=== PATIENT | female | born 1985 ===

== ENCOUNTER 2019-05-23 07:30 | Inpatient (IN) ==
[2019-05-23] MEDS ORDERED: OXYTOCIN 30 UNITS/500 ML BAG IV PRN ×2 (07:46)
--- NOTE | 2019-05-23 08:09 | History & Physical Report ---
Date of Service May 23, 2019 Assessment & Plan (1) : IOL. Admit to L&D. Start pitocin. EFM/toco. IV fluids. Labs. History of Present Illness Chief Complaint: IOL Primary Care Provider: NO PCP 34yo G @ 41 0/7 presents for IOL for postdates. Complicated by AMA. Feeling well. No vaginal bleeding, no leaking of fluid. + movement. No reg ctx. Frazier bulb was inserted last night, has not yet fallen out. Allergies Allergy/AdvReac Type Severity Reaction Status Date / Time No Known Drug Allergies Allergy Unknown Unknown Verified 05/22/19 19:11 Home Medications Home Medications Medication Instructions Recorded Confirmed Type PNV cmb#95-ferrous fumarate-FA 1 tab PO DAILY 05/22/19 05/22/19 History [] Patient History Medical History H/O varicella Surgical History (Updated 05/22/19 @ 19:11 by Lilliana Olivo RN) S/P wisdom tooth extraction 2001 Social History (Updated 01/21/19 @ 10:01 by Judie Quinn) Preferred Language: British marital status: Current Living Situation: Spouse Feels Safe at Home: Yes Smoking Status: Never smoker Hx Alcohol Use: No Hx Substance Use: No Review of Systems All systems reviewed & are unremarkable except as noted in HPI & below Physical Exam Physical Exam: Frazier removed, was sitting in vagina. Cervix 4-5/80/-2. FHT Cat 1 [place] Q 5-6 Constitutional: WD/WN, vitals as above Respiratory: normal respiratory effort, lungs clear to auscultation no respiratory distress Cardiovascular: Rate/Rhythm: regular rate and regular rhythm Gastrointestinal (Abdomen): Inspection/Auscultation: abdomen normal to inspection Percussion/Palpation: abdomen soft; abdomen nontender Gravid. No s/s chorio or abruption. Skin: no rashes, warm and dry Psychiatric: A+Ox3, euthymic affect Results & Data Vital Signs (Past 12 Hours) Vital Signs Pulse BP 05/23/19 07:35 96 H 118/77
[2019-05-23 08:19] LABS: Hematocrit (blood only) 37.9 % (37-47); Mean Corpuscular Hemoglobin 32.2 pg (25-34); Mean Corpuscular Volume 93.8 fL (80-100); Mean Platelet Volume 10.6 fL (7.4-10.4); Platelet Count 214 K/uL (130-400); RDW Coefficient of Variation 13.3 % (11.5-14.5); RDW Standard Deviation 45.9 fL (36.4-46.3); Red Blood Count 4.04 M/uL (4.2-5.4); White Blood Count 10.15 K/uL (4.8-10.8)
[2019-05-23 08:26] LABS: Mean Corpuscular Hgb Conc 34.3 g/dL (32-36)
[2019-05-23] MEDS: LACTATED RINGER'S 1,000 ML IV PRN ×2 (08:40→19:04)
[2019-05-23] MEDS ORDERED: fentaNYL citrate 100 MCG/2 ML VIAL ONE (11:42)
[2019-05-23] MEDS ORDERED: BUPIVACAINE 0.25% 30 ML VIAL ONE (11:42)
[2019-05-23] MEDS ORDERED: ePHEDrine sulfate 50 MG/ML AMP ONE (11:42)
[2019-05-23] MEDS ORDERED: fentaNYL 2MCG/ML ROPIV 1.25MG/ML 100 ML BAG EPI ONE (11:43)
[2019-05-23] MEDS ORDERED: fentaNYL 2MCG/ML ROPIV 1.25MG/ML 100 ML BAG EPI PRN (11:53)
[2019-05-23] MEDS ORDERED: ePHEDrine sulfate 50 MG/ML AMP IV PRN ×2 (11:53→20:45)
[2019-05-23] MEDS ORDERED: NALOXONE HCL 0.4 MG/1 ML VIAL/CARP IV PRN ×2 (11:53→20:45)
[2019-05-23] MEDS ORDERED: ONDANSETRON INJ 2 MG/ML 2 ML VIAL IV PRN ×2 (11:53→20:45)
[2019-05-23] MEDS ORDERED: NALBUPHINE HCL INJ 10 MG/ML AMP IV PRN ×2 (11:53→20:45)
[2019-05-23] MEDS ORDERED: DiphenhydrAMINE HCL 50 MG/ML VIAL IV PRN ×2 (11:53→20:45)
[2019-05-23] MEDS ORDERED: NALOXONE HCL 1 MG in SODIUM CHLORIDE 0.9% 1000ML 1,000 ML IV PRN ×2 (11:53→20:45)
--- NOTE | 2019-05-23 11:55 | Anesthesiology Consultation ---
Date of Service May 23, 2019 Assessment & Plan (1) Encounter for pre-operative examination: Chart Review Chart Review: Patient NOT seen in Pre Admission Testing and Acceptable Risk for Labor Epidural Consults Requested none ASA ASA2 Proposed Anesthesia Anesthesia Type: Labor Epidural Risk / Benefits Reviewed With: PT / POA / Parent / Guardian, Accepts Plan and Informed Consent Obtained History Height/Weight Height: 5 ft 7 in Weight: 87.543 kg Allergies Allergy/AdvReac Type Severity Reaction Status Date / Time No Known Drug Allergies Allergy Unknown Unknown Verified 05/22/19 19:11 Medications Home Medications Medication Instructions Recorded Confirmed Last Taken PNV cmb#95-ferrous fumarate-FA 1 tab PO DAILY 05/22/19 05/23/19 05/22/19 18:00 [] Active Medications Generic Name Dose Route Start Last Admin Trade Name Freq PRN Reason Stop Dose Admin Lactated Ringer's 1,000 mls @ 125 mls/hr 05/23/19 07:46 05/23/19 11:45 Lr IV 05/25/19 07:45 999 mls/hr .Q8H PRN Titration L&D Protocol Protocol Oxytocin 30 units in 500 mls @ 11 mls/hr 05/23/19 07:46 05/23/19 11:25 Pitocin IV 05/25/19 07:45 0.66 units/hr .Q24H PRN 11 mls/hr Labor Induction/Augmentation Titration Protocol 0.66 UNITS/HR Past Medical History Medical History H/O varicella Exercise / Class Metabolic Activity II 4-5 Yardwork/Stairs/Walk up hill Past Family History Family History Mother Breast cancer Father Hypertension Past Surgical History Surgical History S/P wisdom tooth extraction 2001 Past Anesthesia History No Hx of Anesthesia Complications and No Family Hx of Anesthesia Complications History of PONV No Hx of PONV and No Hx of Motion Sickness Social History Smoking Status: Never smoker Do You Dip or Chew Tobacco: No Hx Alcohol Use: No alcohol intake frequency: 0-2 drinks per day Hx Substance Use: No substance use type: does not use Physical Exam Vital Signs Last Vital Signs Temp 37.3 C 05/23/19 11:23 Pulse 87 05/23/19 12:13 Resp 18 05/23/19 11:23 BP 135/87 05/23/19 12:13 Pulse Ox 98 05/23/19 12:09 Testing Laboratory Results 05/23/19 08:11
[2019-05-23] MEDS ORDERED: LACTATED RINGER'S 1,000 ML IV SCH ×2 (19:30→21:15)
[2019-05-23] MEDS ORDERED: CITRIC ACID/SODIUM CITRATE 15 ML UDC PO SCH (19:35)
[2019-05-23] MEDS ORDERED: CEFAZOLIN 2000MG 2,000 MG/15 ML SYR IV SCH (19:45)
[2019-05-23] MEDS ORDERED: LIDOCAINE/EPINEPHRINE 2% 1:200,000 20 ML SDV ONE (20:23)
[2019-05-23] MEDS ORDERED: ONDANSETRON INJ 2 MG/ML 2 ML VIAL ONE (20:23)
[2019-05-23] MEDS ORDERED: PHENYLEPHRINE HCL 10 MG/ML VIAL ONE (20:23)
[2019-05-23] MEDS ORDERED: OXYTOCIN 10 UNITS/ML VIAL ONE (20:23)
[2019-05-23] MEDS ORDERED: MoRPHine SULFATE PF 1 MG/ML 10 ML AMP/VIAL ONE (20:36)
[2019-05-23] MEDS ORDERED: LACTATED RINGER'S 500 ML IV PRN (20:45)
[2019-05-23] MEDS ORDERED: KETOROLAC 30 MG/ML VIAL IV PRN (20:45)
[2019-05-23] MEDS ORDERED: NALOXONE HCL 0.08 MG in SYRINGE 1.8 ML IV PRN (20:45)
[2019-05-23] MEDS ORDERED: DC INTRASPINAL MORPHINE SCH (20:45)
[2019-05-23] MEDS ORDERED: HYDROmorphone INJ 0.5 MG/0.5 ML SYR IV PRN (20:45)
[2019-05-23] MEDS ORDERED: SODIUM CHLORIDE 0.9% 1000ML 1,000 ML IV SCH (20:45)
[2019-05-23] MEDS ORDERED: NO NARCOTICS OR SEDATIVES SCH (20:45)
[2019-05-23] MEDS ORDERED: MoRPHine SULFATE 2 MG/ML CARP IV PRN (20:45)
[2019-05-23] MEDS ORDERED: MoRPHine SULFATE PF 1 MG/ML 10 ML AMP/VIAL EPI ONE (20:45)
--- NOTE | 2019-05-23 21:06 | Post Operative Brief Note ---
PG Immediate Post Op with CF Date of Surgery May 23, 2019 Pre & Post Diagnosis Operation Date: 05/23/19 19:50 Pre-Op Diagnosis: Arrest of Descent Post-Op Diagnosis: Arrest of Descent I identified the patient and participated in the time-out.: Yes Procedure Operation Date: 05/23/19 19:50 Actual Procedures p Section in LD(Bilateral) - Hollie Rosario MD, FACOG Surgeon Hollie Rosario MD, FACOG Central Office Equipment Installer Marlin Iraheta Estimated Blood Loss 600 Findings Consistent with Post-Op Diagnosis Specimens Specimen Description: Live Female Child at 2020 Placenta (Hold) Cord Blood Cord Gases Drains Frazier Catheter (Inserted prior to procedure and being monitored by anesthesia )
[2019-05-23] MEDS ORDERED: MAGNESIUM HYDROXIDE SUSP 30 ML UDC PO PRN (21:15)
[2019-05-23] MEDS ORDERED: DIPHTHERIA/TETANUS/PERTUSSIS 0.5 ML SYR/VIAL IM ONE (21:15)
[2019-05-23] MEDS ORDERED: HYDROCORTISONE ACETATE 25 MG SUPP PR PRN (21:15)
[2019-05-23] MEDS ORDERED: ACETAMINOPHEN 325 MG TAB PO PRN (21:15)
[2019-05-23] MEDS ORDERED: SUPERCREAM 0.870% 15 GM JAR EXT PRN (21:15)
[2019-05-23] MEDS ORDERED: SENNA 8.6 MG TAB PO PRN (21:15)
[2019-05-23] MEDS ORDERED: IBUPROFEN 600 MG TAB PO PRN (21:15)
[2019-05-23] MEDS ORDERED: BENZOCAINE 20% AER SPR 82.5 GM CAN EXT PRN (21:15)
[2019-05-23 21:19] LABS: CO2 Cord Arterial Blood 38 mmHg (39.1-73.5); HCO3 Cord Arterial Blood 21 mmol/L (19.7-28.5); pH Cord Arterial Blood 7.36 (7.1-7.38)
--- NOTE | 2019-05-23 21:19 | Anesthesiology Progress Note ---
Date of Service May 23, 2019 Anesthesia Post Procedure Vital Signs Vital Signs: Temp Pulse Resp BP Pulse Ox 05/23/19 21:16 112 H 131/81 05/23/19 21:15 77 100 05/23/19 19:53 88 139/86 05/23/19 19:48 69 132/76 05/23/19 19:34 77 97 05/23/19 19:29 77 98 05/23/19 19:24 79 99 05/23/19 19:19 104 H 100 05/23/19 19:18 87 130/81 05/23/19 19:14 84 98 05/23/19 19:11 36.8 C 18 05/23/19 19:09 77 99 05/23/19 19:04 106 H 97 05/23/19 19:03 99 H 94 05/23/19 18:59 105 H 96 05/23/19 18:54 78 99 05/23/19 18:49 80 99 05/23/19 18:46 37.2 C 82 22 131/72 05/23/19 18:44 103 H 98 05/23/19 18:39 90 97 05/23/19 18:34 82 96 05/23/19 18:29 87 96 05/23/19 18:25 83 94 05/23/19 18:24 85 94 05/23/19 18:19 89 99 05/23/19 18:17 78 125/74 05/23/19 18:14 107 H 97 05/23/19 18:13 76 94 05/23/19 18:09 88 96 05/23/19 18:04 110 H 97 05/23/19 18:03 80 93 05/23/19 17:59 98 H 97 05/23/19 17:57 102 H 94 05/23/19 17:54 82 97 05/23/19 17:49 72 96 05/23/19 17:48 75 131/71 05/23/19 17:44 107 H 95 05/23/19 17:39 77 96 05/23/19 17:34 86 99 05/23/19 17:29 91 H 97 05/23/19 17:24 95 H 98 05/23/19 17:19 106 H 97 05/23/19 17:18 81 125/70 05/23/19 17:14 79 95 05/23/19 17:12 76 93 05/23/19 17:09 84 94 05/23/19 17:06 99 H 94 05/23/19 17:04 79 98 05/23/19 17:00 81 92 05/23/19 16:59 82 99 05/23/19 16:54 80 99 05/23/19 16:51 77 93 05/23/19 16:49 87 98 05/23/19 16:47 75 122/73 05/23/19 16:44 90 96 05/23/19 16:43 82 92 05/23/19 16:39 37.4 C 82 20 94 05/23/19 16:37 79 93 05/23/19 16:34 89 99 05/23/19 16:31 90 93 05/23/19 16:29 100 H 98 05/23/19 16:24 95 H 97 05/23/19 16:22 86 94 05/23/19 16:19 86 97 05/23/19 16:14 88 98 05/23/19 16:09 93 H 99 05/23/19 16:04 87 99 05/23/19 15:59 83 99 05/23/19 15:54 94 H 99 05/23/19 15:49 89 98 05/23/19 15:47 96 H 137/83 05/23/19 15:44 124 H 98 05/23/19 15:39 87 99 05/23/19 15:34 88 99 05/23/19 15:29 84 98 05/23/19 15:24 81 98 05/23/19 15:19 80 99 05/23/19 15:17 80 128/80 05/23/19 15:14 36.9 C 85 18 98 05/23/19 15:09 90 98 05/23/19 15:04 76 99 05/23/19 14:59 90 95 05/23/19 14:54 81 97 05/23/19 14:49 79 97 05/23/19 14:48 75 120/79 05/23/19 14:44 80 98 05/23/19 14:39 82 97 05/23/19 14:34 87 18 96 05/23/19 14:29 79 99 05/23/19 14:24 79 97 05/23/19 14:19 74 96 12/03/19 14:17 67 111/67 05/23/19 14:14 70 96 05/23/19 14:09 74 98 05/23/19 14:04 68 18 98 05/23/19 13:59 72 97 05/23/19 13:57 73 94 05/23/19 13:54 71 95 05/23/19 13:49 67 97 05/23/19 13:47 67 112/67 05/23/19 13:44 69 97 05/23/19 13:39 72 97 05/23/19 13:34 75 16 97 05/23/19 13:29 76 97 05/23/19 13:24 69 97 05/23/19 13:19 69 97 05/23/19 13:14 67 97 05/23/19 13:09 72 97 05/23/19 13:04 76 96 05/23/19 13:02 37.0 C 93 H 16 116/75 05/23/19 12:59 75 97 05/23/19 12:54 76 97 05/23/19 12:49 76 97 05/23/19 12:47 70 120/74 94 05/23/19 12:44 81 96 05/23/19 12:39 89 18 97 05/23/19 12:34 94 H 97 05/23/19 12:30 80 122/79 05/23/19 12:29 85 96 05/23/19 12:26 84 116/73 05/23/19 12:24 82 97 05/23/19 12:22 84 18 122/69 05/23/19 12:19 85 97 05/23/19 12:18 93 H 127/84 05/23/19 12:14 91 H 133/82 97 05/23/19 12:13 87 135/87 05/23/19 12:10 103 H 150/97 H 05/23/19 12:09 108 H 98 05/23/19 12:06 100 H 20 147/87 H 05/23/19 12:04 98 H 99 05/23/19 11:23 37.3 C 18 05/23/19 11:22 83 18 128/80 05/23/19 10:39 90 18 121/76 05/23/19 09:43 77 18 121/76 05/23/19 08:38 86 18 125/84 05/23/19 07:35 37.2 C 96 H 18 118/77 Pain Intensity Bilateral Abdomen: Pain Intensity: 8 Transfer of Care Handoff Completed per policy Notes Mental Status: alert / awake / arousable and participated in evaluation Patient Amnestic to Procedure: No Nausea / Vomiting: adequately controlled Pain: adequately controlled Airway Patency, RR, SpO2: stable & adequate BP & HR: stable & adequate Hydration State: stable & adequate Neuraxial Anesthesia: was administered and sensory block is resolving Anesthetic Complications: no major complications apparent and Pt Satisfied with anesthetic care
--- NOTE | 2019-05-23 21:19 | Anesthesia Procedure Note ---
Date of Service May 23, 2019 Anesthesia Post Epidural Note Vital Signs Vital Signs: Temp Pulse Resp BP Pulse Ox 36.8 C 112 H 18 131/81 100 05/23/19 19:11 05/23/19 21:16 05/23/19 19:11 05/23/19 21:16 05/23/19 21:15 Pain Intensity Bilateral Abdomen: Pain Intensity: 8 Notes Mental Status: alert / awake / arousable and participated in evaluation Patient Amnestic to Procedure: No Nausea / Vomiting: adequately controlled Pain: adequately controlled Airway Patency, RR, SpO2: stable & adequate BP & HR: stable & adequate Hydration State: stable & adequate Neuraxial Anesthesia: was administered and sensory block is resolving Anesthetic Complications: no major complications apparent and Pt Satisfied with anesthetic care Epidural: Removed without complications and With tip intact
[2019-05-23 21:23] LABS: Base Excess Cord Venous Blood -3.4 mEq/L (-7.7-1.9); Cord Venous Blood HCO3 21 mmol/L (18.4-26.8); Cord Venous Blood PCO2 35 mmHg (30.4-57.2); Cord Venous Blood PO2 30 mmHg (14.1-43.3); Cord Venous Blood pH 7.39 (7.20-7.44)
[2019-05-23] MEDS: OXYTOCIN 20 UNITS in LACTATED RINGER'S 1,000 ML IV SCH (21:51)
--- NOTE | 2019-05-23 23:46 | Operative Report ---
DATE OF OPERATION: 05/23/2019 SURGEON: Hollie Munson MD FEATHER MAKER: Marlin Iraheta RN PREOPERATIVE DIAGNOSES: Intrauterine at 41 weeks gestation, induction of labor for post-term , arrest of descent. PROCEDURE: Primary low transverse section. POSTOPERATIVE DIAGNOSES: Intrauterine at 41 weeks gestation, induction of labor for post-term , arrest of descent plus delivery of a viable female , 7 pounds 14 ounces, Apgars 9 and 10 with deep transverse arrest. ANESTHESIA: Epidural. BLOOD LOSS: 600 mL. HISTORY: The patient is a 34-year-old G1, P0 white female who presented for induction of labor at 41 and 1/7 weeks. She had a cervical balloon placed the night prior to her induction with good results. She presented back in labor and delivery on the morning of 05/23/2019 at 4 cm dilated. Pitocin augmentation was begun. Membranes were ruptured after she reached 6 cm dilated. Epidural analgesia was effective. She progressed to full dilation and pushed effectively for 3 hours with arrest of the head at +2 station. There was no descent of the head with pushing. The patient and her were counseled that the presenting part was too high to attempt vacuum-assisted delivery, especially since the vertex did not descend at all with pushing. The patient and her agreed to section after all their questions were answered to their satisfaction. GROSS FINDINGS: The uterus was gravid and consistent with a term in size. Bilateral ovaries and fallopian tubes were grossly normal. The head was in the right occiput transverse position and was easily brought out of the pelvis. DESCRIPTION OF PROCEDURE: After the patient received adequate epidural anesthesia, she was prepped and draped in the usual sterile fashion. A low transverse skin incision was made with a scalpel and carried to the fascia with the same scalpel. The fascial incision was then extended with Farris scissors. The edges were grasped with Teresita clamps. The underlying rectus muscles were bluntly and sharply dissected off the overlying fascia. The fascia was then divided along the midline and the underlying peritoneum was elevated and entered sharply. The bladder was then taken down off the anterior surface of the uterus and placed behind the bladder blade. Lower uterine segment was entered with the scalpel and extended transversely. The infant was delivered from the right occiput transverse position and was brought out to the uterine incision with moderate fundal pressure. The rest of the infant was delivered through the incision. Mouth and nasopharynx were suctioned upon delivery. The cord was clamped and cut. There was spontaneous crying. The infant was moving all 4 limbs. The was handed off to Dr. Neville, who was in attendance as aerospace physiological technician. After cord blood was obtained, the placenta was expressed intact with a 3-vessel cord. The uterus was exteriorized and covered with a clean lap sponge. Retained membranes were removed at this time. Uterine cavity was now found to be free of any retained tissue or membranes. The uterus was closed in 2 layers in a running locking imbricating fashion with 0 Monocryl. Hemostasis was noted to be satisfactory on the incision. The posterior cul-de-sac was irrigated with normal saline as was the anterior cul-de-sac. Some bleeding along the bladder flap was controlled with the Bovie. The uterus had been then put back into the pelvis. The incision was examined once more and continued to have excellent hemostasis. The gutters were explored and found to be free of any clot or fluid. The rectus muscles were then brought together in the midline with individual stitches of 0 Monocryl. The fascia was closed in a running fashion with 0 Vicryl. After irrigating the adipose layer, the skin edges were reapproximated using a subcuticular stitch of 4-0 Vicryl. Urine was pink tinged at the end of the case, it was clearing prior to leaving the room. Mother and infant were doing well after delivery. I attest to the content of the Intraoperative Record and any orders documented therein. Any exception s are noted below.
[2019-05-24] MEDS: OXYTOCIN 20 UNITS in LACTATED RINGER'S 1,000 ML IV SCH (05:16)
[2019-05-24] MEDS ORDERED: CITRIC ACID/SODIUM CITRATE 15 ML UDC PO SCH (06:00)
--- NOTE | 2019-05-24 06:15 | Obstetrical Progress Note ---
Date of Service <Wayne Jackson MD - Last Filed: 05/24/19 07:07> May 24, 2019 Assessment & Plan <Wayne Jackson MD - Last Filed: 05/24/19 07:07> (1) : s/p LTCS POD#1 doing well, voiding well, minimal pain advance diet as tolerated will discontinue IV fluids as patient increases PO intake after discharge will have follow-up with Dr. Munson in 6 weeks Subjective <Wayne Jackson MD - Last Filed: 05/24/19 07:07> Ms. Clay is a 34 y/o female ; POD #1 following delivery at 41 weeks; doing well this morning; having minimal abdominal cramping/pain; voiding in lopes catheter overnight; has not ambulated about room or eaten overnight Total Intake 4193.951 mL Total Output 1425 mL Review of Systems Constitutional: denies fever; chills; sweats; headache Respiratory: denies shortness of breath, difficulty breathing Cardiac: denies chest pain; palpitations; chest pressure Breast: denies breast pain : denies dysuria Physical Exam <Wayne Jackson MD - Last Filed: 05/24/19 07:07> General: alert; oriented; no acute distress Cardiac: RRR; no m/g/r Respiratory: CTAB a/p; no wheezes/rales/rhonchi; no increased work of breathing; symmetrical chest rise; no respiratory distress Abdomen: soft; NT/ND; bowel sounds positive; incision warm/dry, and intact, no erythema or exudate Uterus: uterine fundus firm; palpable 1cm below umbilicus Lower extrem: no lower extremity edema or swelling; no deep calf pain; Mayi's sign negative b/l Results & Data <Wayne Jackson MD - Last Filed: 05/24/19 07:07> Vital Signs (Past 12 Hours) Vital Signs Temp Pulse Pulse Resp BP BP Pulse Ox 05/24/19 05:48 18 96 05/24/19 04:45 36.9 C 87 18 128/73 98 05/24/19 04:20 18 98 05/24/19 03:19 18 97 05/24/19 02:17 18 98 05/24/19 01:10 17 97 05/24/19 00:42 36.7 C 72 18 123/75 97 05/24/19 00:20 36.7 C 72 18 123/75 97 05/23/19 23:40 71 97 05/23/19 23:35 67 125/66 97 05/23/19 23:30 86 97 05/23/19 23:26 74 140/75 05/23/19 23:25 78 96 05/23/19 23:20 67 97 05/23/19 23:15 37 C 69 16 136/69 97 05/23/19 23:10 70 96 05/23/19 23:06 81 145/85 H 05/23/19 23:05 85 97 05/23/19 23:00 73 97 05/23/19 22:55 66 122/69 97 05/23/19 22:50 66 97 05/23/19 22:45 73 16 117/66 97 05/23/19 22:40 63 97 05/23/19 22:35 66 123/71 97 05/23/19 22:30 69 97 05/23/19 22:27 81 93 05/23/19 22:25 69 123/73 97 05/23/19 22:20 65 96 05/23/19 22:15 37 C 68 18 126/71 97 05/23/19 22:10 68 97 05/23/19 22:05 68 18 124/69 97 05/23/19 22:00 69 97 05/23/19 21:55 66 16 130/66 97 05/23/19 21:54 75 91 05/23/19 21:50 72 97 05/23/19 21:45 66 18 130/66 97 05/23/19 21:40 72 98 05/23/19 21:35 75 16 130/55 L 91 05/23/19 21:30 79 100 05/23/19 21:26 74 128/58 L 05/23/19 21:25 70 16 131/63 98 05/23/19 21:20 73 98 05/23/19 21:16 112 H 131/81 05/23/19 21:15 37 C 65 16 96 05/23/19 19:53 88 139/86 05/23/19 19:48 69 132/76 05/23/19 19:34 77 97 05/23/19 19:29 77 98 05/23/19 19:24 79 99 05/23/19 19:19 104 H 100 05/23/19 19:18 87 130/81 05/23/19 19:14 84 98 05/23/19 19:11 36.8 C 18 05/23/19 19:09 77 99 05/23/19 19:04 106 H 97 05/23/19 19:03 99 H 94 05/23/19 18:59 105 H 96 05/23/19 18:54 78 99 05/23/19 18:49 80 99 05/23/19 18:46 37.2 C 82 22 131/72 05/23/19 18:44 103 H 98 05/23/19 18:39 90 97 05/23/19 18:34 82 96 05/23/19 18:29 87 96 05/23/19 18:25 83 94 05/23/19 18:24 85 94 05/23/19 18:19 89 99 05/23/19 18:17 78 125/74 Laboratory Results 05/24/19 05/23/19 05/23/19 Range/Units 06:05 20:20 20:20 WBC 13.02 H (4.8-10.8) K/uL RBC 3.62 L (4.2-5.4) M/uL Hgb 11.7 L (12.0-16.0) g/dL Hct 33.8 L (37-47) % MCV 93.4 (80-100) fL MCH 32.3 (25-34) pg MCHC 34.6 (32-36) g/dL RDW Std Deviation 46.2 (36.4-46.3) fL RDW Coeff of Carri 13.4 (11.5-14.5) % Plt Count 196 (130-400) K/uL MPV 11.0 H (7.4-10.4) fL Immature Gran % (Auto) 0.4 % Neut % (Auto) 81.7 % Lymph % (Auto) 9.3 % [place] % (Auto) 8.4 % Eos % (Auto) 0.1 % Baso % (Auto) 0.1 % Immature Gran # (Auto) 0.05 H (0.00-0.02) K/uL Neut # (Auto) 10.64 H (1.4-6.5) K/uL Lymph # (Auto) 1.21 (1.2-3.4) K/uL [place] # (Auto) 1.10 H (0.11-0.59) K/uL Eos # (Auto) 0.01 (0-0.5) K/uL Baso # (Auto) 0.01 (0-0.2) K/uL Cord ABG pH 7.36 (7.1-7.38) Cord ABG pCO2 38 L (39.1-73.5) mmHg Cord ABG pO2 34.0 H (4.1-31.7) % Cord ABG HCO3 21 (19.7-28.5) mmol/L Cord ABG Base Excess -4.0 (-9-1.8) mEq/L Cord ABG O2 Sat 71.0 H (<60) % Cord VBG pH 7.39 (7.20-7.44) Cord VBG pCO2 35 (30.4-57.2) mmHg Cord VBG pO2 30 (14.1-43.3) mmHg Cord VBG HCO3 21 (18.4-26.8) mmol/L Cord VBG Base Excess -3.4 (-7.7-1.9) mEq/L Cord VBG O2 Sat 66.0 (<68) % Barometric Pressure 724.9 724.9 mm/Hg Blood Gas Comments JOHANSEN JOHANSEN Blood Type Antibody Screen 05/23/19 05/23/19 Range/Units 08:11 08:11 WBC 10.15 (4.8-10.8) K/uL RBC 4.04 L (4.2-5.4) M/uL Hgb 13.0 (12.0-16.0) g/dL Hct 37.9 (37-47) % MCV 93.8 (80-100) fL MCH 32.2 (25-34) pg MCHC 34.3 (32-36) g/dL RDW Std Deviation 45.9 (36.4-46.3) fL RDW Coeff of Carri 13.3 (11.5-14.5) % Plt Count 214 (130-400) K/uL MPV 10.6 H (7.4-10.4) fL Immature Gran % (Auto) % Neut % (Auto) % Lymph % (Auto) % [place] % (Auto) % Eos % (Auto) % Baso % (Auto) % Immature Gran # (Auto) (0.00-0.02) K/uL Neut # (Auto) (1.4-6.5) K/uL Lymph # (Auto) (1.2-3.4) K/uL [place] # (Auto) (0.11-0.59) K/uL Eos # (Auto) (0-0.5) K/uL Baso # (Auto) (0-0.2) K/uL Cord ABG pH (7.1-7.38) Cord ABG pCO2 (39.1-73.5) mmHg Cord ABG pO2 (4.1-31.7) % Cord ABG HCO3 (19.7-28.5) mmol/L Cord ABG Base Excess (-9-1.8) mEq/L Cord ABG O2 Sat (<60) % Cord VBG pH (7.20-7.44) Cord VBG pCO2 (30.4-57.2) mmHg Cord VBG pO2 (14.1-43.3) mmHg Cord VBG HCO3 (18.4-26.8) mmol/L Cord VBG Base Excess (-7.7-1.9) mEq/L Cord VBG O2 Sat (<68) % Barometric Pressure mm/Hg Blood Gas Comments Blood Type A Positive Antibody Screen NEGATIVE Medications Administered Current Inpatient Medications Acetaminophen (Tylenol) 650 mg PO Q4H PRN PRN Reason: Pain Stop: 06/22/19 21:14 Benzocaine (Dermoplast Pain Relieving [place]) 1 appln EXT UD PRN PRN Reason: use on skin as needed Stop: 06/22/19 21:14 Bisacodyl (Dulcolax) 5 mg PO 1999 ANAHI Stop: 05/24/19 20:01 Bisacodyl (Dulcolax) 10 mg DE PRN PRN PRN Reason: Constipation Stop: 06/24/19 21:14 Cocaine HCl (Supercream 0.870%) 1 gm EXT UD PRN PRN Reason: hemmorrhoidal inflammation Stop: 06/06/19 21:14 Diphenhydramine HCl (Benadryl) 25 mg IV Q6H PRN PRN Reason: pruritis Stop: 05/24/19 14:45 Diphenhydramine HCl (Benadryl) 25 mg IV QID PRN PRN Reason: Itching Stop: 06/23/19 14:45 Diphenhydramine HCl (Benadryl Capsule) 25 mg PO QID PRN PRN Reason: Itching Stop: 06/23/19 14:45 Docusate Sodium (Colace) 100 mg PO DAILY@08,21 ANAHI Stop: 06/23/19 07:59 Ephedrine Sulfate (Ephedrine Sulfate) 10 mg IV Q5M PRN PRN Reason: Hypotension Stop: 05/24/19 14:45 Ferrous Sulfate (Feosol) 325 mg PO DAILY@08 ANAHI Stop: 06/23/19 07:59 Hydrocortisone (Anusol Hc) 25 mg DE BID PRN PRN Reason: Hemorrhoids Stop: 06/22/19 21:14 Hydromorphone HCl (Dilaudid) 0.25 mg IV Q4H PRN PRN Reason: Breakthrough Surgical Pain Stop: 05/24/19 14:45 Lactated Ringer's (Lr) 1,000 mls @ 125 mls/hr IV .Q8H PRN; Protocol PRN Reason: L&D Protocol Stop: 05/25/19 07:45 Last Infusion: 05/23/19 19:40 Dose: Infused Documented by: Oxytocin (Pitocin) 30 units in 500 mls @ 333.333 mls/hr IV .Q1H30M PRN; Protocol PRN Reason: Bleeding Control Stop: 06/22/19 07:45 Oxytocin (Pitocin) 30 units in 500 mls @ 0 mls/hr IV .Q0M PRN; Protocol PRN Reason: Labor Induction/Augmentation Stop: 05/25/19 07:45 Last Titration: 05/23/19 21:51 Dose: Infused Documented by: Lactated Ringer's (Lr) 1,000 mls @ 125 mls/hr IV .Q8H ANAHI Stop: 06/24/19 07:44 Sodium Chloride (Nss 1000ml) 1,000 mls @ 15 mls/hr IV .Q24H ANAHI Stop: 05/24/19 14:45 Naloxone HCl 1 mg/ Sodium (Chloride) 1,002.5 mls @ 50 mls/hr IV .Q20H3M PRN PRN Reason: itching or nausea Stop: 05/24/19 14:45 Lactated Ringer's (Lr) 500 mls @ 999 mls/hr IV .Q31M PRN PRN Reason: Hypotension Stop: 05/24/19 14:45 Naloxone HCl 0.08 mg/ Syringe 2 mls @ 1 mls/min IV Q30M PRN; Protocol PRN Reason: Urinary Retention Stop: 05/24/19 14:45 Lactated Ringer's (Lr) 1,000 mls @ 125 mls/hr IV .Q8H ANAHI Stop: 06/22/19 21:14 Promethazine HCl 25 mg/ Sodium (Chloride) 51 mls @ 204 mls/hr IV Q4H PRN PRN Reason: Nausea And Vomiting Stop: 06/23/19 14:45 Oxytocin 20 units/ Lactated (Ringer's) 1,002 mls @ 125 mls/hr IV .Q8H1M ANAHI Stop: 06/22/19 21:14 Last Admin: 05/24/19 05:16 Dose: 125 mls/hr Documented by: Ibuprofen (Motrin) 600 mg PO Q4H PRN PRN Reason: Pain Stop: 06/22/19 21:14 Ketorolac Tromethamine (Toradol) 30 mg IV Q6H PRN PRN Reason: Breakthrough Surgical Pain Stop: 05/24/19 14:45 Last Admin: 05/23/19 21:22 Dose: 30 mg Documented by: Ketorolac Tromethamine (Toradol) 30 mg IV Q6H PRN PRN Reason: Pain Stop: 05/29/19 14:45 Magnesium Hydroxide (Milk Of Magnesia) 30 ml PO HS PRN PRN Reason: Constipation Stop: 06/22/19 21:14 Meperidine HCl (Demerol) 50 - 75 mg IV Q4H PRN PRN Reason: Pain Stop: 06/07/19 14:45 Miscellaneous (No Narcotics Or Sedatives) 1 ea N/A UD ANAHI Stop: 05/24/19 14:45 Miscellaneous Information (Dc Intraspinal Morphine) 1 ea N/A UD ANAHI Stop: 05/24/19 14:45 Morphine Sulfate (Morphine Sulfate) 2 mg IV Q2H PRN PRN Reason: Breakthrough Surgical Pain Stop: 05/24/19 14:45 Nalbuphine HCl (Nubain) 5 mg IV Q10M PRN PRN Reason: itching or nausea Stop: 05/24/19 14:45 Naloxone HCl (Narcan) 0.1 mg IV UD PRN PRN Reason: Respiratory Depression Stop: 05/24/19 14:45 Ondansetron HCl (Zofran) 4 mg IV Q6H PRN PRN Reason: Nausea And Vomiting Stop: 05/24/19 14:45 Ondansetron HCl (Zofran) 4 mg IV Q4H PRN PRN Reason: Nausea And Vomiting Stop: 06/23/19 14:45 Oxycodone/Acetaminophen (Percocet 5mg/325mg) 1 - 2 tab PO Q4H PRN PRN Reason: Pain Stop: 06/07/19 14:45 Prenat Multivit/[place]/Iron/Folic Ac ( Vitamin) 1 tab PO DAILY@08 [facility] Stop: 06/23/19 07:59 Sennosides (Senokot) 17.2 mg PO HS PRN PRN Reason: Constipation Stop: 06/22/19 21:14 Simethicone (Mylicon) 80 mg PO DAILY@08,13,17,21 [facility] Stop: 06/23/19 07:59 <Hollie Rosario MD, FACOG - Last Filed: 05/24/19 08:04> Co-Signing Physician Notes Resident Physician Supervision Note: I interviewed and examined the patient. Discussed with Dr. Jackson and agree with findings and plan as documented in the note. Any exceptions or clarifications are listed here: [None] Documented By: Hollie Rosario MD, FACOG Resident Activity Tracking <Wayne Jackson MD - Last Filed: 05/24/19 07:07> Resident Involvement: Resident Care Provided Care Provided: OB Delivery
[2019-05-24 06:35] LABS: Basophils # (auto) 0.01 K/uL (0-0.2); Basophils % (auto) 0.1 %; Eosinophils # (auto) 0.01 K/uL (0-0.5); Eosinophils % (auto) 0.1 %; Hematocrit (blood only) 33.8 % (37-47); Hemoglobin 11.7 g/dL (12.0-16.0); Immature Granulocytes # (auto) 0.05 K/uL (0.00-0.02); Immature Granulocytes % (auto) 0.4 %; Lymphocytes # (auto) 1.21 K/uL (1.2-3.4); Lymphocytes % (auto) 9.3 %; Mean Corpuscular Hemoglobin 32.3 pg (25-34); Mean Corpuscular Hgb Conc 34.6 g/dL (32-36); Mean Corpuscular Volume 93.4 fL (80-100); Monocytes % (auto) 8.4 %; Neutrophils # (auto) 10.64 K/uL (1.4-6.5); Neutrophils % (auto) 81.7 %; Platelet Count 196 K/uL (130-400); RDW Coefficient of Variation 13.4 % (11.5-14.5); RDW Standard Deviation 46.2 fL (36.4-46.3); Red Blood Count 3.62 M/uL (4.2-5.4); White Blood Count 13.02 K/uL (4.8-10.8)
[2019-05-24] MEDS: FERROUS SULFATE 325 MG TAB PO SCH (07:52)
[2019-05-24] MEDS: DOCUSATE SODIUM 100 MG CAP PO SCH ×2 (07:52→20:36)
[2019-05-24] MEDS: SIMETHICONE 80 MG CHEW PO SCH ×4 (07:52→20:36)
[2019-05-24] MEDS: PRENATAL VITAMIN 1 TAB PO SCH (07:52)
--- NOTE | 2019-05-24 11:47 | Anesthesiology Progress Note ---
Date of Service May 24, 2019 Anesthesia Post Procedure Vital Signs Vital Signs: Temp Pulse Pulse Resp BP BP Pulse Ox 05/24/19 10:00 18 98 05/24/19 09:00 18 99 05/24/19 08:00 18 99 05/24/19 07:54 36.8 C 84 16 134/85 99 05/24/19 07:15 18 99 05/24/19 06:39 18 98 05/24/19 05:48 18 96 05/24/19 04:45 36.9 C 87 18 128/73 98 05/24/19 04:20 18 98 05/24/19 03:19 18 97 05/24/19 02:17 18 98 05/24/19 01:10 17 97 05/24/19 00:42 36.7 C 72 18 123/75 97 05/24/19 00:20 36.7 C 72 18 123/75 97 05/23/19 23:40 71 97 05/23/19 23:35 67 125/66 97 05/23/19 23:30 86 97 05/23/19 23:26 74 140/75 05/23/19 23:25 78 96 05/23/19 23:20 67 97 05/23/19 23:15 37 C 69 16 136/69 97 05/23/19 23:10 70 96 05/23/19 23:06 81 145/85 H 05/23/19 23:05 85 97 05/23/19 23:00 73 97 05/23/19 22:55 66 122/69 97 05/23/19 22:50 66 97 05/23/19 22:45 73 16 117/66 97 05/23/19 22:40 63 97 05/23/19 22:35 66 123/71 97 05/23/19 22:30 69 97 05/23/19 22:27 81 93 05/23/19 22:25 69 123/73 97 05/23/19 22:20 65 96 05/23/19 22:15 37 C 68 18 126/71 97 05/23/19 22:10 68 97 05/23/19 22:05 68 18 124/69 97 05/23/19 22:00 69 97 05/23/19 21:55 66 16 130/66 97 05/23/19 21:54 75 91 05/23/19 21:50 72 97 05/23/19 21:45 66 18 130/66 97 05/23/19 21:40 72 98 05/23/19 21:35 75 16 130/55 L 91 05/23/19 21:30 79 100 05/23/19 21:26 74 128/58 L 05/23/19 21:25 70 16 131/63 98 05/23/19 21:20 73 98 05/23/19 21:16 112 H 131/81 05/23/19 21:15 37 C 65 16 96 05/23/19 19:53 88 139/86 05/23/19 19:48 69 132/76 05/23/19 19:34 77 97 05/23/19 19:29 77 98 05/23/19 19:24 79 99 05/23/19 19:19 104 H 100 05/23/19 19:18 87 130/81 05/23/19 19:14 84 98 05/23/19 19:11 36.8 C 18 05/23/19 19:09 77 99 05/23/19 19:04 106 H 97 05/23/19 19:03 99 H 94 05/23/19 18:59 105 H 96 05/23/19 18:54 78 99 05/23/19 18:49 80 99 05/23/19 18:46 37.2 C 82 22 131/72 05/23/19 18:44 103 H 98 05/23/19 18:39 90 97 05/23/19 18:34 82 96 05/23/19 18:29 87 96 05/23/19 18:25 83 94 05/23/19 18:24 85 94 05/23/19 18:19 89 99 05/23/19 18:17 78 125/74 05/23/19 18:14 107 H 97 05/23/19 18:13 76 94 05/23/19 18:09 88 96 05/23/19 18:04 110 H 97 05/23/19 18:03 80 93 05/23/19 17:59 98 H 97 05/23/19 17:57 102 H 94 05/23/19 17:54 82 97 05/23/19 17:49 72 96 05/23/19 17:48 75 131/71 05/23/19 17:44 107 H 95 05/23/19 17:39 77 96 12/03/19 17:34 86 99 05/23/19 17:29 91 H 97 05/23/19 17:24 95 H 98 05/23/19 17:19 106 H 97 05/23/19 17:18 81 125/70 05/23/19 17:14 79 95 05/23/19 17:12 76 93 05/23/19 17:09 84 94 05/23/19 17:06 99 H 94 05/23/19 17:04 79 98 05/23/19 17:00 81 92 05/23/19 16:59 82 99 05/23/19 16:54 80 99 05/23/19 16:51 77 93 05/23/19 16:49 87 98 05/23/19 16:47 75 122/73 05/23/19 16:44 90 96 05/23/19 16:43 82 92 05/23/19 16:39 37.4 C 82 20 94 05/23/19 16:37 79 93 05/23/19 16:34 89 99 05/23/19 16:31 90 93 05/23/19 16:29 100 H 98 05/23/19 16:24 95 H 97 05/23/19 16:22 86 94 05/23/19 16:19 86 97 05/23/19 16:14 88 98 05/23/19 16:09 93 H 99 05/23/19 16:04 87 99 05/23/19 15:59 83 99 05/23/19 15:54 94 H 99 05/23/19 15:49 89 98 05/23/19 15:47 96 H 137/83 05/23/19 15:44 124 H 98 05/23/19 15:39 87 99 05/23/19 15:34 88 99 05/23/19 15:29 84 98 05/23/19 15:24 81 98 05/23/19 15:19 80 99 05/23/19 15:17 80 128/80 05/23/19 15:14 36.9 C 85 18 98 05/23/19 15:09 90 98 05/23/19 15:04 76 99 05/23/19 14:59 90 95 05/23/19 14:54 81 97 05/23/19 14:49 79 97 05/23/19 14:48 75 120/79 12/03/19 14:44 80 98 05/23/19 14:39 82 97 05/23/19 14:34 87 18 96 05/23/19 14:29 79 99 05/23/19 14:24 79 97 05/23/19 14:19 74 96 05/23/19 14:17 67 111/67 05/23/19 14:14 70 96 05/23/19 14:09 74 98 05/23/19 14:04 68 18 98 05/23/19 13:59 72 97 05/23/19 13:57 73 94 05/23/19 13:54 71 95 05/23/19 13:49 67 97 05/23/19 13:47 67 112/67 05/23/19 13:44 69 97 05/23/19 13:39 72 97 05/23/19 13:34 75 16 97 05/23/19 13:29 76 97 05/23/19 13:24 69 97 05/23/19 13:19 69 97 05/23/19 13:14 67 97 05/23/19 13:09 72 97 05/23/19 13:04 76 96 05/23/19 13:02 37.0 C 93 H 16 116/75 05/23/19 12:59 75 97 05/23/19 12:54 76 97 05/23/19 12:49 76 97 05/23/19 12:47 70 120/74 94 05/23/19 12:44 81 96 05/23/19 12:39 89 18 97 05/23/19 12:34 94 H 97 05/23/19 12:30 80 122/79 05/23/19 12:29 85 96 05/23/19 12:26 84 116/73 05/23/19 12:24 82 97 05/23/19 12:22 84 18 122/69 05/23/19 12:19 85 97 05/23/19 12:18 93 H 127/84 05/23/19 12:14 91 H 133/82 97 05/23/19 12:13 87 135/87 05/23/19 12:10 103 H 150/97 H 05/23/19 12:09 108 H 98 05/23/19 12:06 100 H 20 147/87 H 05/23/19 12:04 98 H 99 Pain Intensity Bilateral Abdomen: Pain Intensity: 2 Transfer of Care Handoff Completed per policy Notes Mental Status: alert / awake / arousable Patient Amnestic to Procedure: Yes Nausea / Vomiting: adequately controlled Pain: adequately controlled Airway Patency, RR, SpO2: stable & adequate BP & HR: stable & adequate Hydration State: stable & adequate Neuraxial Anesthesia: was administered and sensory block is resolving Anesthetic Complications: no major complications apparent
[2019-05-24] MEDS ORDERED: KETOROLAC 30 MG/ML VIAL IV PRN (14:46)
[2019-05-24] MEDS ORDERED: ONDANSETRON INJ 2 MG/ML 2 ML VIAL IV PRN (14:46)
[2019-05-24] MEDS ORDERED: MEPERIDINE HCL 50 MG/ML CARP IV PRN (14:46)
[2019-05-24] MEDS ORDERED: PROMETHAZINE HCL 25 MG in SODIUM CHLORIDE 0.9% 50 ML IV PRN (14:46)
[2019-05-24] MEDS ORDERED: OXYCODONE/ACETAMINOPHEN 5mg/325mg TAB PO PRN (14:46)
[2019-05-24] MEDS ORDERED: DiphenhydrAMINE HCL 50 MG/ML VIAL IV PRN (14:46)
[2019-05-24] MEDS ORDERED: bisacodyL 5 MG TABEC PO SCH (20:00)
[2019-05-25 06:36] LABS: Hematocrit (blood only) 32.5 % (37-47); Hemoglobin 10.9 g/dL (12.0-16.0)
--- NOTE | 2019-05-25 07:05 | Obstetrical Progress Note ---
Date of Service <Wayne aJckson MD - Last Filed: 05/25/19 07:05> May 25, 2019 Assessment & Plan <Wayne Jackson MD - Last Filed: 05/25/19 07:05> (1) : s/p LTCS POD#2 doing well, voiding well, minimal pain continue routine care until discharge after discharge will have follow-up with Dr. Munson in 6 weeks Subjective <Wayne Jackson MD - Last Filed: 05/25/19 07:05> Ms. Clay is a 34 y/o female ; POD #2 following delivery at 41 weeks; doing well this morning; having minimal abdominal cramping/pain; voiding well; tolerating meals overnight; and able to ambulate some Review of Systems Constitutional: denies fever; chills; sweats; headache Respiratory: denies shortness of breath, difficulty breathing Cardiac: denies chest pain; palpitations; chest pressure Breast: denies breast pain : denies dysuria Physical Exam <Wayne Jackson MD - Last Filed: 05/25/19 07:05> General: alert; oriented; no acute distress Cardiac: RRR; no m/g/r Respiratory: CTAB a/p; no wheezes/rales/rhonchi; no increased work of breathing; symmetrical chest rise; no respiratory distress Abdomen: soft; NT/ND; bowel sounds positive; incision warm/dry and intact, no erythema or exudate Uterus: uterine fundus firm; palpable 3cm below umbilicus Lower extrem: no lower extremity edema or swelling; no deep calf pain; Mayi's sign negative b/l Results & Data <Wayne Jackson MD - Last Filed: 05/25/19 07:05> Vital Signs (Past 12 Hours) Vital Signs Temp Pulse Resp BP Pulse Ox 05/24/19 23:15 37.4 C 84 18 138/82 98 05/24/19 19:55 36.9 C 100 H 18 117/77 97 Laboratory Results 05/25/19 Range/Units 06:19 Hgb 10.9 L (12.0-16.0) g/dL Hct 32.5 L (37-47) % Medications Administered Current Inpatient Medications Acetaminophen (Tylenol) 650 mg PO Q4H PRN PRN Reason: Pain Stop: 06/22/19 21:14 Benzocaine (Dermoplast Pain Relieving [place]) 1 appln EXT UD PRN PRN Reason: use on skin as needed Stop: 06/22/19 21:14 Bisacodyl (Dulcolax) 10 mg [place] PRN PRN PRN Reason: Constipation Stop: 06/24/19 21:14 Cocaine HCl (Supercream 0.870%) 1 gm EXT UD PRN PRN Reason: hemmorrhoidal inflammation Stop: 06/06/19 21:14 Diphenhydramine HCl (Benadryl) 25 mg IV QID PRN PRN Reason: Itching Stop: 06/23/19 14:45 Diphenhydramine HCl (Benadryl Capsule) 25 mg PO QID PRN PRN Reason: Itching Stop: 06/23/19 14:45 Docusate Sodium (Colace) 100 mg PO DAILY@, [facility] Stop: 06/23/19 07:59 Last Admin: 05/24/19 20:36 Dose: 100 mg Documented by: Ferrous Sulfate (Feosol) 325 mg PO DAILY@ [facility] Stop: 06/23/19 07:59 Last Admin: 05/24/19 07:52 Dose: 325 mg Documented by: Hydrocortisone (Anusol Hc) 25 mg [place] BID PRN PRN Reason: Hemorrhoids Stop: 06/22/19 21:14 Lactated Ringer's (Lr) 1,000 mls @ 125 mls/hr IV .Q8H PRN; Protocol PRN Reason: L&D Protocol Stop: 05/25/19 07:45 Last Infusion: 05/23/19 19:40 Dose: Infused Documented by: Oxytocin (Pitocin) 30 units in 500 mls @ 333.333 mls/hr IV .Q1H30M PRN; Protocol PRN Reason: Bleeding Control Stop: 06/22/19 07:45 Oxytocin (Pitocin) 30 units in 500 mls @ 0 mls/hr IV .Q0M PRN; Protocol PRN Reason: Labor Induction/Augmentation Stop: 05/25/19 07:45 Last Titration: 05/23/19 21:51 Dose: Infused Documented by: Lactated Ringer's (Lr) 1,000 mls @ 125 mls/hr IV .Q8H ANAHI Stop: 06/24/19 07:44 Lactated Ringer's (Lr) 1,000 mls @ 125 mls/hr IV .Q8H ANAHI Stop: 06/22/19 21:14 Promethazine HCl 25 mg/ Sodium (Chloride) 51 mls @ 204 mls/hr IV Q4H PRN PRN Reason: Nausea And Vomiting Stop: 06/23/19 14:45 Oxytocin 20 units/ Lactated (Ringer's) 1,002 mls @ 125 mls/hr IV .Q8H1M ANAHI Stop: 06/22/19 21:14 Last Infusion: 05/24/19 14:52 Dose: Infused Documented by: Ibuprofen (Motrin) 600 mg PO Q4H PRN PRN Reason: Pain Stop: 06/22/19 21:14 Ketorolac Tromethamine (Toradol) 30 mg IV Q6H PRN PRN Reason: Pain Stop: 05/29/19 14:45 Magnesium Hydroxide (Milk Of Magnesia) 30 ml PO HS PRN PRN Reason: Constipation Stop: 06/22/19 21:14 Meperidine HCl (Demerol) 50 - 75 mg IV Q4H PRN PRN Reason: Pain Stop: 06/07/19 14:45 Ondansetron HCl (Zofran) 4 mg IV Q4H PRN PRN Reason: Nausea And Vomiting Stop: 06/23/19 14:45 Oxycodone/Acetaminophen (Percocet 5mg/325mg) 1 - 2 tab PO Q4H PRN PRN Reason: Pain Stop: 06/07/19 14:45 Prenat Multivit/[place]/Iron/Folic Ac ( Vitamin) 1 tab PO DAILY@08 [facility] Stop: 06/23/19 07:59 Last Admin: 05/24/19 07:52 Dose: 1 tab Documented by: Sennosides (Senokot) 17.2 mg PO HS PRN PRN Reason: Constipation Stop: 06/22/19 21:14 Simethicone (Mylicon) 80 mg PO DAILY@08,13,17,21 [facility] Stop: 06/23/19 07:59 Last Admin: 05/24/19 20:36 Dose: 80 mg Documented by: <Oziel Manuel MD, FACOG - Last Filed: 05/25/19 07:24> Co-Signing Physician Notes Resident Physician Supervision Note: I interviewed and examined the patient. Discussed with [eulogio] and agree with findings and plan as documented in the note. Any exceptions or clarifications are listed here: [None] Documented By: Oziel Manuel MD, FACOG Resident Activity Tracking <Wayne Jackson MD - Last Filed: 05/25/19 07:05> Resident Involvement: Resident Care Provided Care Provided: OB Delivery
[2019-05-25] MEDS ORDERED: LACTATED RINGER'S 1,000 ML IV SCH (07:45)
[2019-05-25] MEDS ORDERED: Nursing to Pharmacy Communication ONE (08:05)
[2019-05-25] MEDS: DOCUSATE SODIUM 100 MG CAP PO SCH ×2 (08:24→20:33)
[2019-05-25] MEDS: PRENATAL VITAMIN 1 TAB PO SCH (08:24)
[2019-05-25] MEDS: SIMETHICONE 80 MG CHEW PO SCH ×4 (08:25→20:35)
[2019-05-25] MEDS: FERROUS SULFATE 325 MG TAB PO SCH (08:25)
[2019-05-25] MEDS ORDERED: bisacodyL 10 MG SUPP PR PRN (21:15)
--- NOTE | 2019-05-26 06:13 | Obstetrical Progress Note ---
Date of Service <Wayne Jackson MD - Last Filed: 05/26/19 06:41> May 26, 2019 Assessment & Plan <Wayne Jackson MD - Last Filed: 05/26/19 06:41> (1) : s/p LTCS POD#3 doing well, voiding well, minimal pain continue routine care until discharge after discharge will have follow-up with Dr. Munson in 6 weeks Subjective <Wayne Jackson MD - Last Filed: 05/26/19 06:41> Ms. Clay is a 34 y/o female ; POD #3 following delivery at 41 weeks; doing well this morning; having minimal abdominal cramping/pain; voiding well; tolerating meals overnight; and able to ambulate some Review of Systems Constitutional: denies fever; chills; sweats; headache Respiratory: denies shortness of breath, difficulty breathing Cardiac: denies chest pain; palpitations; chest pressure Breast: denies breast pain : denies dysuria Physical Exam <Wayne Jackson MD - Last Filed: 05/26/19 06:41> General: alert; oriented; no acute distress Cardiac: RRR; no m/g/r Respiratory: CTAB a/p; no wheezes/rales/rhonchi; no increased work of breathing; symmetrical chest rise; no respiratory distress Abdomen: soft; NT/ND; bowel sounds positive; incision warm/dry and intact Uterus: uterine fundus firm; palpable 3cm below umbilicus Lower extrem: no lower extremity edema or swelling; no deep calf pain; Mayi's sign negative b/l Results & Data <Wayne Jackson MD - Last Filed: 05/26/19 06:41> Vital Signs (Past 12 Hours) Vital Signs Temp Pulse Resp BP 05/25/19 23:35 36.6 C 73 18 123/76 Laboratory Results 05/25/19 Range/Units 06:19 Hgb 10.9 L (12.0-16.0) g/dL Hct 32.5 L (37-47) % Medications Administered Current Inpatient Medications Acetaminophen (Tylenol) 650 mg PO Q4H PRN PRN Reason: Pain Stop: 06/22/19 21:14 Benzocaine (Dermoplast Pain Relieving [place]) 1 appln EXT UD PRN PRN Reason: use on skin as needed Stop: 06/22/19 21:14 Bisacodyl (Dulcolax) 10 mg [place] PRN PRN PRN Reason: Constipation Stop: 06/24/19 21:14 Cocaine HCl (Supercream 0.870%) 1 gm EXT UD PRN PRN Reason: hemmorrhoidal inflammation Stop: 06/06/19 21:14 Diphenhydramine HCl (Benadryl Capsule) 25 mg PO QID PRN PRN Reason: Itching Stop: 06/23/19 14:45 Docusate Sodium (Colace) 100 mg PO DAILY@, [facility] Stop: 06/23/19 07:59 Last Admin: 05/25/19 20:33 Dose: 100 mg Documented by: Ferrous Sulfate (Feosol) 325 mg PO DAILY@08 [facility] Stop: 06/23/19 07:59 Last Admin: 05/25/19 08:25 Dose: 325 mg Documented by: Hydrocortisone (Anusol Hc) 25 mg [place] BID PRN PRN Reason: Hemorrhoids Stop: 06/22/19 21:14 Ibuprofen (Motrin) 600 mg PO Q4H PRN PRN Reason: Pain Stop: 06/22/19 21:14 Magnesium Hydroxide (Milk Of Magnesia) 30 ml PO HS PRN PRN Reason: Constipation Stop: 06/22/19 21:14 Oxycodone/Acetaminophen (Percocet 5mg/325mg) 1 - 2 tab PO Q4H PRN PRN Reason: Pain Stop: 06/07/19 14:45 Prenat Multivit/[place]/Iron/Folic Ac ( Vitamin) 1 tab PO DAILY@08 [facility] Stop: 06/23/19 07:59 Last Admin: 05/25/19 08:24 Dose: 1 tab Documented by: Sennosides (Senokot) 17.2 mg PO HS PRN PRN Reason: Constipation Stop: 06/22/19 21:14 Simethicone (Mylicon) 80 mg PO DAILY@08,,, [facility] Stop: 06/23/19 07:59 Last Admin: 05/25/19 20:35 Dose: 80 mg Documented by: <Divya Blcak MD, FACOG - Last Filed: 05/26/19 07:35> Co-Signing Physician Notes Resident Physician Supervision Note: I was present with Dr. Jackson during the history and exam. I discussed the case with the resident and agree with the findings and plan as documented in the note. Any exceptions or clarifications are listed here: doing well. plan d/c home, bottle feeding, instructions reviewed. will send small amount of percocet to pharm, she is not really using much. checked on pa pdmp. Documented By: Divya Black MD, FACOG Resident Activity Tracking <Wayne Jackson MD - Last Filed: 05/26/19 06:41> Resident Involvement: Resident Care Provided Care Provided: OB Delivery
[2019-05-26] MEDS: PRENATAL VITAMIN 1 TAB PO SCH (09:42)
[2019-05-26] MEDS: SIMETHICONE 80 MG CHEW PO SCH (09:42)
[2019-05-26] MEDS: DOCUSATE SODIUM 100 MG CAP PO SCH (09:42)
[2019-05-26] MEDS: FERROUS SULFATE 325 MG TAB PO SCH (09:42)
--- NOTE | 2019-05-30 01:20 | Discharge Summary ---
PRINCIPAL DIAGNOSES: Intrauterine at 41 weeks, failed induction of labor for post-term , arrest of descent. PRINCIPAL PROCEDURE: Primary low transverse section with delivery of a viable female, 7 pounds 14 ounces, Apgars 9 and 10. HISTORY OF PRESENT ILLNESS AND HOSPITAL COURSE: The patient is a 34-year-old 1, P0 white female who presented for induction of labor at 41 and 1/7 weeks. She had cervical balloon placed the night prior to her induction with good results. She was 4 cm upon arrival back in labor and delivery for the continuation of her induction. Pitocin augmentation of her labor was started. Membranes were ruptured for clear fluid. She received epidural analgesia. She progressed to full dilation and she pushed effectively for 3 hours. Unfortunately, the head never descended past +2 station. There was no descent of the head with pushing. The presenting part was too high to attempt a vacuum-assisted delivery. The patient was expressing concerns of maternal exhaustion as well. It was then recommended to proceed with low transverse section. This was done without any complications. The infant was noted to be in right occiput transverse position at the time of the . She had an uncomplicated postop course. She had good pain control throughout her hospital stay. She was ambulating, voiding and eating regular diet by her first postop day. Hemoglobin on admission was 13.0, hematocrit of 37.9. First postop day, hemoglobin 11.7, hematocrit 33.8. Second postop day, hemoglobin 10.9, hematocrit 32.5. She was sent home in good condition with the usual postop and instructions. She is to call for a temperature of 101 degrees or higher, heavy vaginal bleeding, burning with urination, increased redness, drainage or pain in her incision, calf tenderness or any other concerns. She was sent home with prescriptions for Percocet 1-2 tablets p.o. q. 4 hours p.r.n. pain and Motrin 600 mg p.o. q. 4 hours p.r.n. pain. She is to be seen in 6 weeks for followup visit. MARIANNE
== END 2019-05-26 13:52 | disposition home or self-care (01) | DRG 788 ==
LOC: 4S1 07:30 → 4S2 23:45